=== PATIENT | male | born 1955 | race Caucasian/White ===

== ENCOUNTER → 2016-04-23 | Outpatient (REF) | payer OTHER ==
[2016-04-23 19:07] LABS: URIC ACID, BODY FLUID 5.2 MG/DL (NOT ESTABLISHED)
[2016-04-23 19:27] LABS: CRYSTALS, BODY FLUID NONE SEEN (NONE SEEN); SYNOVIAL FLUID COLOR RED (YELLOW)
[2016-04-23 20:25] LABS: RBC ADVIA BF 0.25; RBC CALC. BF 250000 (< 10mm3 cells/uL); WBC ADVIA BF 0.9; WBC CALC. BF 900 cells/uL (0-20)
[2016-04-23 20:36] LABS: BF DIFF IF INDICATED? YES (NO)
[2016-04-23 21:23] LABS: CC BF DIFF EXAM CYTOCENTRIFUGE
== END ==
LOC: M LAB REF 17:15
PROVIDERS: ATTEND Orthopaedic Surgery
DX: M70.42 Prepatellar bursitis, left knee (principal)

== ENCOUNTER 2019-03-29 07:37 | Day surgery (SDC) | payer OTHER ==
[~2019-03-29] VITALS: Ht 172.7 cm; Wt 90.7 kg
[~2019-03-29 07:37] MED LIST: ATOR1TAB19 PO; HYDR12.55 PO; LISI-542 PO; METF500T13 PO; NS 1,000 ML IV ONE
[2019-03-29] MEDS ORDERED: LIDOCAINE 2% INJ 100 MG/5 ML SDV (FOR ANES.) As Ordered ONE (10:34)
[2019-03-29] MEDS ORDERED: propofoL 200 MG/20 ML VIAL As Ordered ONE ×2 (10:34→10:45)
--- NOTE | 2019-03-29 10:57 | ROOR ---
Patient Name: aDnk Davidson Procedure Date: 03/29/2019 10:29 AM Date of : 1955 Age: 64 Room: [facility] Gender: Male Note Status: Finalized Procedure: Colonoscopy Indications: High risk colon cancer surveillance: Personal history of colonic polyps Providers: Matias BETTS MD Referring MD: BILLIE HOLLAND MD Requesting Provider: Medicines: Monitored Anesthesia Care Complications: No immediate complications. Procedure: Pre-Anesthesia Assessment: - The heart rate, respiratory rate, oxygen saturations, blood pressure, adequacy of pulmonary ventilation, and response to care were monitored throughout the procedure. The Colonoscope was introduced through the anus and advanced to the cecum, identified by appendiceal orifice and ileocecal valve. The colonoscopy was somewhat difficult due to inadequate bowel prep. Successful completion of the procedure was aided by lavage. The patient tolerated the procedure well. The quality of the bowel preparation was inadequate. Findings: The perianal and digital rectal examinations were normal. Three flat and sessile polyps were found in the sigmoid colon and ascending colon. The polyps were 5 to 12 mm in size. These polyps were removed with a piecemeal technique using a cold snare. Resection and retrieval were complete. Multiple diverticula were found in the sigmoid colon. Internal hemorrhoids were found during retroflexion. The hemorrhoids were medium-sized. Impression: - Preparation of the colon was suboptimal/inadequate. - Three 5 to 12 mm polyps in the sigmoid colon and in the ascending colon, removed piecemeal using a cold snare. Resected and retrieved. - Diverticulosis in the sigmoid colon. - Internal hemorrhoids. Recommendation: - Repeat colonoscopy in 2 years because the bowel preparation was suboptimal. - (Rec alternate colon preparation for next colonoscopy) Matias Betts MD Matias BETTS MD 03/29/2019 10:57:06 AM Electronically signed by Matias BETTS MD Number of Addenda: 0 Note Initiated On: 03/29/2019 10:29 AM Estimated Blood Loss: Estimated blood loss: none.
[2019-03-29 11:15] VITALS: BP 150/91
== END 2019-03-29 11:30 | disposition home or self-care (01) ==
LOC: M OPP 07:37
PROVIDERS: ATTEND Internal Medicine Gastroenterology
DX: Z12.11 Encounter for screening for malignant neoplasm of colon (principal); Z86.010 Personal history of colon polyps; K64.8 Other hemorrhoids; D12.5 Benign neoplasm of sigmoid colon; K63.5 Polyp of colon; K57.30 Diverticulosis of large intestine without perforation or abscess without bleeding; E11.9 Type 2 diabetes mellitus without complications; Z79.84 Long term (current) use of oral hypoglycemic drugs; Z79.899 Other long term (current) drug therapy

== ENCOUNTER → 2021-06-19 | Outpatient (CLI) | payer OTHER ==
[~2021-06-19] MED LIST changes: -LISI-542 PO; +LISI5TAB11 PO; -NS 1,000 ML IV ONE
== END ==
LOC: M LABSMTC 10:43
PROVIDERS: ATTEND Anesthesiology
DX: Z01.812 Encounter for preprocedural laboratory examination (principal); Z20.822 Contact with and (suspected) exposure to COVID-19

== ENCOUNTER 2021-06-24 06:39 | Day surgery (SDC) | payer OTHER ==
[~2021-06-24] VITALS: Ht 172.7 cm; Wt 81.6 kg
[~2021-06-24 06:39] MED LIST changes: +NS 1,000 ML IV ONE
[2021-06-24] MEDS ORDERED: propofoL 200 MG/20 ML VIAL As Ordered ONE ×2 (07:15→07:48)
[2021-06-24] MEDS ORDERED: LIDOCAINE 2% 100MG/5ML SDV (FOR ANES.) As Ordered ONE (07:15)
[2021-06-24 08:27] VITALS: BP 112/75
== END 2021-06-24 08:28 | disposition home or self-care (01) ==
LOC: M OPP 06:39
PROVIDERS: ATTEND Internal Medicine Gastroenterology
DX: Z12.11 Encounter for screening for malignant neoplasm of colon (principal); Z86.010 Personal history of colon polyps; K63.5 Polyp of colon; K57.30 Diverticulosis of large intestine without perforation or abscess without bleeding; K64.8 Other hemorrhoids; E11.9 Type 2 diabetes mellitus without complications; I10 Essential (primary) hypertension; Z79.02 Long term (current) use of antithrombotics/antiplatelets; Z79.84 Long term (current) use of oral hypoglycemic drugs; Z79.899 Other long term (current) drug therapy